=== PATIENT | female | born 1985 | race Caucasian/White ===

== ENCOUNTER 2022-05-19 22:29 | Emergency (ER) | payer BC ==
[~2022-05-19 22:29] MED LIST: GASTROGRAFIN 30 ML BOT ONE; Iopamidol 300 61% 100 ML VIAL FS ONE
[2022-05-19 23:17] LABS: #Basophils 0.1 10x3/uL (0.0-0.2); #Eosinphils 0.3 10x3/uL (0.0-0.5); #Monocytes 0.6 10x3/uL (0.0-1.1); #Neutrophils 5.7 10x3/uL (1.5-8.4); %Basophils 0.5 % (0.0-2.0); %Eosinophils 2.7 % (0.0-6.0); %Lymphocytes 32.6 % (18.0-47.0); %Monocytes 5.7 % (0.0-10.0); %Neutrophils 58.3 % (40.0-75.0); Hemoglobin 13.3 g/dL (12.0-15.5); Mean Corpuscular HGB CONC 34.9 g/dL (32.0-36.0); Mean Corpuscular Hemoglobin 29.6 pg (27.0-33.0); Mean Corpuscular Volume 84.7 fl (81.6-98.3); Mean Platelet Volume 9.3 fl (7.4-10.4); Platelet Count 412 10x3/uL (150-450); RBC Distribution Width 12.8 % (11.5-14.5); White Blood Cell (WBC) Count 9.8 10x3/uL (3.5-10.5)
[2022-05-19] MEDS ORDERED: Morphine 4 MG/ML VIAL ONE (23:19)
[2022-05-19] MEDS ORDERED: Ondansetron PF 4 MG/2 ML Vial ONE (23:19)
[2022-05-19 23:27] LABS: BHCG - Serum Negative (NEGATIVE); Pregs Control Background? CLEAR/WHITE (CLR/WHITE); Pregs Control Bar Appear? YES (CONTROL BAR)
[2022-05-19 23:35] LABS: ALT (SGPT) 13 U/L (8-55); AST (SGOT) 15 U/L (5-34); Alkaline Phosphatase 80 U/L (40-110); Anion Gap 16 mmol/L (10-20); BUN (Urea Nitrogen) 6 mg/dL (7.0-18.7); Bilirubin, Total 0.2 mg/dL (0.2-1.2); Calc. Creatinine Clearance 0 mL/min (70-130); Calcium 8.6 mg/dL (7.8-10.44); Carbon Dioxide 23 mmol/L (22-29); Chloride 105 mmol/L (98-107); Estimated GFR 116; Glucose 100 mg/dL (70-105); Lipase 18 U/L (8-78); Potassium 3.1 mmol/L (3.5-5.1); Sodium 141 mmol/L (136-145)
[2022-05-19 23:36] LABS: Bilirubin Neg (Negative); Blood, Urine Negative (Negative); Clarity Clear (Clear); Glucose, Urine (Dipstick) Normal (Negative); Ketone, Urine Negative (Negative); Leukocyte Negative (Negative); Nitrite Negative (Negative); Protein, Urine (Dipstick) 15 mg/dl (Neg-Trace); Urobilinogen Normal mg/dL (Less than 2); pH, Urine 6.5 (5.0-9.0)
[2022-05-20] MEDS ORDERED: Lidocaine Viscous Sol 2% 15 ml UD Cup ONE (00:29)
[2022-05-20] MEDS ORDERED: Mag-Al Plus 1200 MG/1200 MG/120 MG/30 ML UDCUP ONE (00:29)
== END 2022-05-20 00:35 | disposition home or self-care (01) ==
LOC: CSHERS 22:29
DX: R10.13 Epigastric pain (principal)
CPT/HCPCS: 74177; 80053; 81003; 83690; 84703; 85025; 96374; 96375; J2270; J2405; Q9963; Q9967

== ENCOUNTER 2022-05-23 14:50 | Inpatient (IN) | payer BC ==
[~2022-05-23 14:50] MED LIST changes: -GASTROGRAFIN 30 ML BOT ONE
[2022-05-23 16:11] LABS: #Eosinphils 0.2 10x3/uL (0.0-0.5); #Monocytes 0.4 10x3/uL (0.0-1.1); #Neutrophils 5.6 10x3/uL (1.5-8.4); %Basophils 0.5 % (0.0-2.0); %Lymphocytes 21.3 % (18.0-47.0); %Monocytes 5.2 % (0.0-10.0); %Neutrophils 70.7 % (40.0-75.0); Hemoglobin 14.3 g/dL (12.0-15.5); Mean Corpuscular HGB CONC 34.8 g/dL (32.0-36.0); Mean Corpuscular Hemoglobin 29.5 pg (27.0-33.0); Mean Corpuscular Volume 84.7 fl (81.6-98.3); Mean Platelet Volume 9.2 fl (7.4-10.4); Platelet Count 454 10x3/uL (150-450); RBC Distribution Width 12.6 % (11.5-14.5); Red Blood Cell (RBC) Count 4.85 10x6/uL (3.90-5.03); White Blood Cell (WBC) Count 7.9 10x3/uL (3.5-10.5)
[2022-05-23 16:15] LABS: Bilirubin 1+ (Negative); Blood, Urine Negative (Negative); Clarity Cloudy (Clear); Glucose, Urine (Dipstick) Normal (Negative); Ketone, Urine Negative (Negative); Leukocyte Negative (Negative); Nitrite Negative (Negative); Protein, Urine (Dipstick) Negative (Neg-Trace)
[2022-05-23 16:22] LABS: BHCG - Serum Negative (NEGATIVE); Pregs Control Background? CLEAR/WHITE (CLR/WHITE); Pregs Control Bar Appear? YES (CONTROL BAR)
[2022-05-23] MEDS ORDERED: Morphine 4 MG/ML VIAL ONE (16:23)
[2022-05-23] MEDS ORDERED: Pantoprazole 40 MG VIAL ONE (16:23)
[2022-05-23] MEDS ORDERED: Famotidine/PF 20 mg/2ml Vial ONE (16:23)
[2022-05-23 16:26] LABS: ALT (SGPT) 117 U/L (8-55); AST (SGOT) 154 U/L (5-34); Albumin 4.1 g/dL (3.5-5.0); Alkaline Phosphatase 165 U/L (40-110); Anion Gap 14 mmol/L (10-20); BUN (Urea Nitrogen) 6 mg/dL (7.0-18.7); Bilirubin, Total 2.1 mg/dL (0.2-1.2); Calc. Creatinine Clearance 0 mL/min (70-130); Calcium 9.1 mg/dL (7.8-10.44); Carbon Dioxide 25 mmol/L (22-29); Chloride 104 mmol/L (98-107); Estimated GFR 115; Globulin 3.3 g/dL (2.4-3.5); Glucose 113 mg/dL (70-105); Lipase 31 U/L (8-78); Potassium 3.4 mmol/L (3.5-5.1); Protein, Total 7.4 g/dL (6.0-8.3); Sodium 140 mmol/L (136-145)
[2022-05-23] MEDS ORDERED: Piperacillin/Tazobactam 4.5 GM VIAL ONE (19:38)
[2022-05-23] MEDS ORDERED: Ondansetron PF 4 MG/2 ML Vial IVP PRN (19:39)
[2022-05-23] MEDS ORDERED: Calcium Carbonate 500 MG ChewTAB PO PRN (19:39)
[2022-05-23] MEDS ORDERED: Senokot S 8.6-50 MG TAB PO PRN (19:39)
[2022-05-23] MEDS ORDERED: Acetaminophen 325 MG TAB PO PRN (19:39)
[2022-05-23] MEDS ORDERED: Morphine 2 MG/ML VIAL SLOW IVP PRN (19:41)
[2022-05-23] MEDS ORDERED: Potassium Chloride 20 MEQ TAB PO SCH (20:30)
[2022-05-23] MEDS: Dextrose 5%-Lactated Ringers 1,000 ML IV SCH (21:32)
[2022-05-23] MEDS: Pantoprazole 40 MG VIAL IVP SCH (21:33)
[2022-05-23] MEDS ORDERED: Venlafaxine 75 MG TAB PO SCH (23:15)
[2022-05-23] MEDS ORDERED: Losartan Potassium 50 MG TAB PO SCH (23:15)
[2022-05-23] MEDS: Zolpidem Tartrate 5 MG TAB PO PRN (23:17)
[2022-05-23] MEDS: Losartan Potassium 50 MG TAB PO SCH (23:21)
[2022-05-23 23:45] VITALS: BMI 29.7
[2022-05-24] MEDS: Dextrose 5%-Lactated Ringers 1,000 ML IV SCH ×3 (03:25→21:28)
[2022-05-24 04:51] LABS: #Basophils 0.1 10x3/uL (0.0-0.2); #Eosinphils 0.2 10x3/uL (0.0-0.5); #Monocytes 0.4 10x3/uL (0.0-1.1); #Neutrophils 2.6 10x3/uL (1.5-8.4); %Basophils 0.8 % (0.0-2.0); %Eosinophils 3.9 % (0.0-6.0); %Lymphocytes 46.9 % (18.0-47.0); %Monocytes 6.3 % (0.0-10.0); %Neutrophils 41.9 % (40.0-75.0); Hemoglobin 12.9 g/dL (12.0-15.5); Mean Corpuscular HGB CONC 34.9 g/dL (32.0-36.0); Mean Corpuscular Hemoglobin 29.7 pg (27.0-33.0); Mean Corpuscular Volume 85.1 fl (81.6-98.3); Mean Platelet Volume 9.1 fl (7.4-10.4); Platelet Count 383 10x3/uL (150-450); RBC Distribution Width 12.8 % (11.5-14.5); Red Blood Cell (RBC) Count 4.35 10x6/uL (3.90-5.03); White Blood Cell (WBC) Count 6.2 10x3/uL (3.5-10.5)
[2022-05-24 05:18] LABS: ALT (SGPT) 93 U/L (8-55); AST (SGOT) 92 U/L (5-34); Albumin 3.4 g/dL (3.5-5.0); Alkaline Phosphatase 159 U/L (40-110); Anion Gap 10 mmol/L (10-20); BUN (Urea Nitrogen) Less than 4 mg/dL (7.0-18.7); Bilirubin, Total 1.1 mg/dL (0.2-1.2); Calc. Creatinine Clearance 158 mL/min (70-130); Calcium 8.6 mg/dL (7.8-10.44); Carbon Dioxide 27 mmol/L (22-29); Cardiac Risk 3.1 (Less than 4.5); Chloride 107 mmol/L (98-107); Cholesterol 172 mg/dl (< 200 Desired); Estimated GFR 117; Globulin 2.6 g/dL (2.4-3.5); Glucose 110 mg/dL (70-105); HDL Cholesterol 56 mg/dL (>60 Neg Risk); LDL Cholesterol, Calculated 87 mg/dL; Potassium 3.5 mmol/L (3.5-5.1); Sodium 140 mmol/L (136-145); Triglycerides 145 mg/dL (Less than 150)
[2022-05-24] MEDS: Pantoprazole 40 MG VIAL IVP SCH ×2 (13:19→21:30)
[2022-05-24] MEDS: Enoxaparin Sodium 40 MG/0.4 ML SYRINGE SC SCH (13:19)
[2022-05-24] MEDS ORDERED: Bupivacaine PF 0.5% 30 ML VIAL ONE (14:44)
[2022-05-24] MEDS ORDERED: Rocuronium Bromide 10 MG/ML (10ML VIAL) ONE (15:25)
[2022-05-24] MEDS ORDERED: Fentanyl 250 MCG/5 ML VIAL ONE (15:25)
[2022-05-24] MEDS ORDERED: Ondansetron PF 4 MG/2 ML Vial ONE ×2 (15:25→16:33)
[2022-05-24] MEDS ORDERED: Lidocaine 1% PF 5 ML VIAL ONE (15:25)
[2022-05-24] MEDS ORDERED: Dexamethasone 4 mg/ml Vial ONE (15:25)
[2022-05-24] MEDS ORDERED: PROPOFOL 20 ML ONE (15:25)
[2022-05-24] MEDS ORDERED: Piperacillin/Tazobactam 4.5 GM in Sodium Chloride 0.9% 100 ML IVPB SCH (15:45)
[2022-05-24] MEDS ORDERED: PHENYLEPHRINE-NS 100 MCG/ML 10 ML SYRINGE ONE (16:00)
[2022-05-24] MEDS ORDERED: EPINEPHrine 1 MG/ML AMP ONE (16:08)
[2022-05-24] MEDS ORDERED: SUGAMMADEX SODIUM 200 MG/2 ML VIAL ONE (16:25)
[2022-05-24] MEDS ORDERED: Fentanyl 100 MCG/2 ML VIAL ONE (16:32)
[2022-05-24] MEDS: HYDROcodone/Acetaminophen 5/325 mg Tablet PO PRN ×2 (19:16→22:41)
[2022-05-24] MEDS ORDERED: Venlafaxine 75 MG TAB PO SCH (21:00)
[2022-05-24] MEDS: Losartan Potassium 50 MG TAB PO SCH (21:29)
[2022-05-24] MEDS: Zolpidem Tartrate 5 MG TAB PO PRN (21:29)
[2022-05-25 05:26] LABS: ALT (SGPT) 78 U/L (8-55); AST (SGOT) 51 U/L (5-34); Albumin 3.6 g/dL (3.5-5.0); Alkaline Phosphatase 158 U/L (40-110); Anion Gap 10 mmol/L (10-20); BUN (Urea Nitrogen) Less than 4 mg/dL (7.0-18.7); Bilirubin, Total 0.4 mg/dL (0.2-1.2); Calc. Creatinine Clearance 166 mL/min (70-130); Calcium 8.8 mg/dL (7.8-10.44); Carbon Dioxide 28 mmol/L (22-29); Chloride 105 mmol/L (98-107); Estimated GFR 118; Globulin 2.8 g/dL (2.4-3.5); Glucose 130 mg/dL (70-105); Protein, Total 6.4 g/dL (6.0-8.3); Sodium 139 mmol/L (136-145)
[2022-05-25] MEDS: Dextrose 5%-Lactated Ringers 1,000 ML IV SCH (05:37)
[2022-05-25] MEDS: Enoxaparin Sodium 40 MG/0.4 ML SYRINGE SC SCH (08:58)
[2022-05-25] MEDS: Pantoprazole 40 MG VIAL IVP SCH (08:59)
[2022-05-25] MEDS ORDERED: HYDROcodone/Acetaminophen 5/325 mg Tablet PO SCH (09:00)
[2022-05-25 09:04] VITALS: BP 143/91; TEMP 97.5
[2022-05-25] MEDS ORDERED: Venlafaxine 75 MG TAB PO SCH (21:00)
[2022-05-25] MEDS ORDERED: Melatonin 3 MG TAB PO SCH (21:00)
[2022-05-25] MEDS ORDERED: Losartan Potassium 50 MG TAB PO SCH (21:00)
[2022-05-25] MEDS ORDERED: NORGESTIMATE ETHINYL ESTRADIOL PO SCH (21:00)
== END 2022-05-25 10:41 | disposition home or self-care (01) | DRG 419 ==
LOC: CSHERS 14:50 → CSHTELE 20:57 → OBSVTOIN 20:58
PROVIDERS: ADMIT Student in an Organized Health Care Education/Training Program; ATTEND Student in an Organized Health Care Education/Training Program
PROC: 0FT44ZZ Resection of Gallbladder, Percutaneous Endoscopic Approach (ICD-10-PCS; principal; 2022-05-25)
DX: K80.10 Calculus of gallbladder with chronic cholecystitis without obstruction (principal); K21.9 Gastro-esophageal reflux disease without esophagitis; R79.89 Other specified abnormal findings of blood chemistry; E87.6 Hypokalemia; R74.01 Elevation of levels of liver transaminase levels; E80.6 Other disorders of bilirubin metabolism; Z20.822 Contact with and (suspected) exposure to COVID-19; E66.9 Obesity, unspecified; Z98.84 Bariatric surgery status; Z80.3 Family history of malignant neoplasm of breast; Z90.3 Acquired absence of stomach [part of]; Z68.29 Body mass index [BMI] 29.0-29.9, adult; Z82.49 Family history of ischemic heart disease and other diseases of the circulatory system; Z79.899 Other long term (current) drug therapy
CPT/HCPCS: 36415; 74177; 74181; 76705; 80053; 80061; 81003; 83690; 84703; 85025; 88304; 93005; 96361; 96365; 96375; C1713; C9113; J0171; J1100; J1650; J2270; J2405; J2543; J2704; J3010; Q9967; S0020; S0028; U0003; U0005

== ENCOUNTER 2025-06-25 10:52 | Outpatient (CLI) | payer BC | END 2025-06-25 10:53 | disposition home or self-care (01) | LOC: CSHDTY/OP 10:52 | PROVIDERS: ATTEND Nurse Practitioner Family | DX: Z71.3 Dietary counseling and surveillance (principal) | CPT/HCPCS: 97802 ==